=== PATIENT | female | born 1945 | race Caucasian/White ===

== ENCOUNTER → 2016-09-13 | Outpatient (CLI) | payer OTHER, MEDICARE | LOC: FIMAGING 11:16 | PROVIDERS: ATTEND Physician Assistant Surgical | DX: Z09 Encounter for follow-up examination after completed treatment for conditions other than malignant neoplasm (principal); Z98.1 Arthrodesis status ==

== ENCOUNTER → 2016-10-07 | Outpatient (CLI) | payer OTHER, MEDICARE | LOC: BMCIMAGING 08:35 | DX: Z12.31 Encounter for screening mammogram for malignant neoplasm of breast (principal) | CPT/HCPCS: G0202 ==

== ENCOUNTER → 2016-10-24 | Outpatient (CLI) | payer OTHER, MEDICARE | LOC: BMCIMAGING 14:11 | PROVIDERS: ATTEND Internal Medicine | DX: N63 Unspecified lump in breast (principal) ==

== ENCOUNTER → 2016-12-23 | Outpatient (CLI) | payer OTHER, MEDICARE | LOC: FIMAGING 10:39 | PROVIDERS: ATTEND Physician Assistant Surgical | DX: Z09 Encounter for follow-up examination after completed treatment for conditions other than malignant neoplasm (principal); Z98.1 Arthrodesis status ==

== ENCOUNTER → 2017-03-17 | Outpatient (CLI) | payer OTHER, MEDICARE | LOC: FIMAGING 10:03 | PROVIDERS: ATTEND Physician Assistant Surgical | DX: M43.12 Spondylolisthesis, cervical region (principal); Z98.1 Arthrodesis status ==

== ENCOUNTER → 2017-10-09 | Outpatient (CLI) | payer OTHER, MEDICARE | LOC: BMCIMAGING 09:32 | PROVIDERS: ATTEND Internal Medicine | DX: Z12.31 Encounter for screening mammogram for malignant neoplasm of breast (principal) ==

== ENCOUNTER → 2018-03-26 | Outpatient (CLI) | payer OTHER, MEDICARE | LOC: FIMAGING 10:33 | PROVIDERS: ATTEND Physician Assistant Surgical | DX: M43.12 Spondylolisthesis, cervical region (principal) ==

== ENCOUNTER → 2018-05-10 | Outpatient (CLI) | payer OTHER, MEDICARE ==
[~2018-05-10] MED LIST: GADOBUTROL 10 ML VIAL IVP ONE
== END ==
LOC: FIMAGING 10:47
PROVIDERS: ATTEND Physician Assistant Surgical
DX: M51.06 Intervertebral disc disorders with myelopathy, lumbar region (principal); M53.86 Other specified dorsopathies, lumbar region; M48.07 Spinal stenosis, lumbosacral region
CPT/HCPCS: 72158; A9585; 82565-PO

== ENCOUNTER 2018-08-11 11:11 | Day surgery (SDC) | payer MEDICARE, OTHER ==
[2018-08-11] MEDS ORDERED: ACETAMINOPHEN 500 MG TAB PO ONE (11:25)
[2018-08-11] MEDS ORDERED: LR 1,000 ML IV ONE (11:25)
[2018-08-11] MEDS ORDERED: ceFAZolin 2 GM/DEXTROSE 100 ML IV ONE (11:25)
[2018-08-11] MEDS ORDERED: GABAPENTIN 300 MG CAP PO ONE (11:25)
[2018-08-11] MEDS ORDERED: LIDOCAINE 1% 2 ML INJ ID PRN (11:25)
[2018-08-11] MEDS ORDERED: CHLORHEXIDINE GLUC HIBICLENS 118 ML BTL TP ONE (11:32)
[2018-08-11] MEDS ORDERED: THROMBIN (BOVINE) 5,000 UNIT VIAL TP ONE (11:32)
[2018-08-11] MEDS ORDERED: BUPIVACAINE 0.25% 30 ML SDV ONE (11:32)
[2018-08-11] MEDS ORDERED: BACITRACIN 50,000 UNITS/10 ML SYR IRR ONE (11:33)
[2018-08-11] MEDS ORDERED: EPINEPHrine 1 MG/ML INJ ONE (11:33)
[2018-08-11] MEDS ORDERED: MIDAZOLAM 2 MG/2 ML VIAL IVP ONE (12:47)
--- NOTE | 2018-08-11 12:48 | PDANEPAE ---
ANE History of Present Illness Lumbar back pain ANE Past Medical History - Cardiovascular History Hx Hypertension: Yes Hx Arrhythmias: No Hx Chest Pain: No Hx Coronary Artery / Peripheral Vascular Disease: No Hx CHF / Valvular Disease: No Hx Palpitations: No - Pulmonary History Hx COPD: No Hx Asthma/Reactive Airway Disease: No Hx Recent Upper Respiratory Infection: No Hx Oxygen in Use at Home: No Hx Sleep Apnea: No Sleep Apnea Screening Result - Last Documented: Negative Pulmonary History Comment: SINUS INFECTION 05/2018. seasonal allergies-weeds - Neurologic History Hx Cerebrovascular Accident: No Hx Seizures: No Hx Dementia: No Neurologic History Comment: SPINAL STENOSIS - Endocrine History Hx Diabetes: No Endocrine History Comment: GRAVES DX- in remission. - Renal History Hx Renal Disorders: No - Liver History Hx Hepatic Disorders: No - Neurological & Psychiatric Hx Hx Neurological and Psychiatric Disorders: No Neurological / Psychiatric History Comment: scoliosis,. peripheral neuropathy.intermittent low back pain-outer aspect of R leg.R foot numbness. - Cancer History Hx Cancer: No - Congenital Disorder History Hx Congenital Disorders: No - GI History Hx Gastrointestinal Disorders: Yes Gastrointestinal History Comment: GLUT INTOLERANT - Other Health History Other Health History: PERIPHERAL NEUROPATHY- forearms, lower extrem, feet, scoliosis R side. - Chronic Pain History Chronic Pain: Yes (RT HIP,RT SIDE OF BACK) - Surgical History Prior Surgeries: RT WRIST ORIF. TLIF 04/2016. Cervical Fusion 3-15,. LT ACL AND SCOPE. RT SHLDR SCOPE. COLONOSCOPY. BLOCKED BREAST DUCT ANE Review of Systems Review of systems is: negative Review of Systems: - Exercise capacity METS (RN): 4 METS ANE Patient History - Allergies Allergies/Adverse Reactions: gluten Allergy (Verified 10/07/14 16:04) - Home Medications Home medications: home medication list seen and reviewed Home Medications: Acetaminophen [Tylenol 325mg (*)] 650 mg PO Q6 PRN 07/31/18 [Last Taken Unknown] Amitriptyline HCl [Elavil 10 mg (*)] 20 mg PO DAILY 07/31/18 [Last Taken Unknown ] Lisinopril [Zestril 40 mg (*)] 40 mg PO DAILY 07/31/18 [Last Taken Unknown] - NPO status NPO Status: no food or drink >8 hours NPO Since - Liquids (Date): 08/11/18 NPO Since - Liquids (Time): 07:00 NPO Since - Solids (Date): 08/10/18 NPO Since - Solids (Time): 22:30 - Anes Hx Anes Hx: no prior problems - Smoking Hx Smoking Status: Former smoker - Family Anes Hx Family Anes Hx: none Family Hx Anesthesia Complications: NEG ANE Labs/Vital Signs - Vital Signs Blood Pressure: 168/84 Heart Rate: 92 Respiratory Rate: 16 O2 Sat (%): 97 Height: 167.64 cm Weight: 72.575 kg ANE Physical Exam - Airway Neck exam: FROM Mallampati Score: Class 1 Mouth exam: normal dental/mouth exam - Pulmonary Pulmonary: no respiratory distress, no rales or rhonchi - Cardiovascular Cardiovascular: regular rate and rhythym, no murmur, rub, or gallop - ASA Status ASA Status: II ANE Anesthesia Plan Anesthesia Plan: general endotracheal anesthesia
[2018-08-11] MEDS ORDERED: fentaNYL 100 MCG/2 ML INJ ONE ×2 (12:53→14:24)
[2018-08-11] MEDS ORDERED: PROPOFOL/EMULSION 500 MG/50 ML BOTTLE IV ONE (12:54)
[2018-08-11] MEDS ORDERED: PROPOFOL 200 MG/20 ML VIAL ONE (12:54)
[2018-08-11] MEDS ORDERED: REMIFENTANIL HCL 1 MG VIAL ONE (12:54)
--- NOTE | 2018-08-11 12:58 | PDHPUP ---
History & Physical Update H&P update statement: This history and physical update is based on an assessment of the patient which was completed after admission or registration (within 24 hours), but prior to the surgery/procedure. H&P update: no change in patient's condition since H&P completed
--- NOTE | 2018-08-11 13:16 | SOAPPROG ---
SOAP Progress Note Assessment/Plan: Assessment: Doing well s/p Right L5/S1 ELAN Plan: CPM in PACU Ok to DC home from PACU per orders after 3 hrs observation (see orders) 08/11/18 13:15 08/11/18 14:58 Subjective: Sleeping, wakes easily, comfortable Objective: Vital Signs Temp Pulse Resp BP Pulse Ox 36.6 C 92 16 168/84 H 97 08/11/18 11:39 08/11/18 12:47 08/11/18 12:47 08/11/18 12:47 08/11/18 12:47 Vital; HR: 95 BP: 119/68 02:99% Neuro: Follows commands CURRIE to command sens +LT throughout ICD10 Worksheet Patient Problems: Problems Problem Status Onset Cervical stenosis of spinal canal Acute Fusion of lumbar spine Acute
--- NOTE | 2018-08-11 13:17 | POSTOPPROG ---
Post Op Note Date of Operation: 08/11/18 Surgeon: Jamie Cho [employer]: Jamie Cho PAC Anesthesiologist: Jay Anesthesia: GET(General Endotracheal) Pre-op Diagnosis: Right L5/S1 HNP Post-op Diagnosis: Same Indication: Right leg pain Procedure: Right L5/S1 ELAN Findings: HNP Inf/Abcess present in the surg proc area at time of surgery?: No EBL: Minimal Complications: None Specimen(s): None
[2018-08-11] MEDS ORDERED: ONDANSETRON 4 MG/2 ML VIAL IVP PRN ×2 (14:03→14:47)
[2018-08-11] MEDS ORDERED: HYDROmorphONE/DILAUDID 2 MG/ML INJ IVP PRN (14:03)
[2018-08-11] MEDS ORDERED: NALOXONE HCL 0.4 MG/ML INJ IVP PRN (14:03)
[2018-08-11] MEDS ORDERED: fentaNYL 100 MCG/2 ML INJ IVP PRN (14:03)
[2018-08-11] MEDS ORDERED: PROMETHAZINE HCL 25 MG/ML INJ IVP PRN (14:03)
[2018-08-11] MEDS ORDERED: METHOCARBAMOL 750 MG TAB PO PRN (14:47)
[2018-08-11] MEDS ORDERED: LACTULOSE 20 GM/30 ML UDCUP PO PRN (14:47)
[2018-08-11] MEDS ORDERED: ONDANSETRON DISINTEGRATING 4 MG TAB PO PRN (14:47)
[2018-08-11] MEDS ORDERED: diphenhydrAMINE 25 MG CAP PO PRN (14:47)
[2018-08-11] MEDS ORDERED: oxyCODONE IR 5 MG TAB PO PRN (14:47)
[2018-08-11] MEDS ORDERED: BISACODYL 10 MG SUPP PR PRN (14:47)
[2018-08-11] MEDS ORDERED: MAGNESIUM HYDROXIDE 30 ML UDCUP PO PRN (14:47)
--- NOTE | 2018-08-11 14:48 | POSTANESTH ---
Post Anesthetic Evaluation Cardiovascular Status: Similar to Pre-Op Cond Respiratory Status: Similar to Pre-op Cond. Level of Consciousness/Mental Status: Alert and Oriented Pain Control: Adequate, Prn Tx Ordered Nausea/Vomiting Control: Adequate, Prn Tx Ordered Complications Possibly Related to Anesthesia: None Noted
--- NOTE | 2018-08-11 14:58 | GOP ---
DATE OF OPERATION: 08/11/2018 SURGEON: Kael Louie MD BARREL INSPECTOR: Jamie Cho PA-C. ANESTHESIA: General endotracheal. PREOPERATIVE DIAGNOSIS: 1. Right L5-S1 disk herniation causing severe right S1 radiculopathy. 2. Failed conservative care. POSTOPERATIVE DIAGNOSIS: 1. Right L5-S1 disk herniation causing severe right S1 radiculopathy. 2. Failed conservative care. PROCEDURE PERFORMED: FINDINGS: ESTIMATED BLOOD LOSS: 50 cc. INDICATIONS: The patient is a 73-year-old woman with intractable right S1 distribution radicular pain secondary to a right L5-S1 disk herniation. She has a history of a multilevel lumbar fusion extending from L3 to L5 with instrumentation. It was felt that she did not need a fusion at this level and she could get away with a minimally-invasive microdiskectomy. I explained to the patient preoperatively that it would take a little longer than normal, given the adjacent scar tissue. She had failed conservative care already. DESCRIPTION OF PROCEDURE: After informed consent was obtained, the patient was taken to the operating room and placed in the prone position on the Jaret frame. The lumbosacral area was prepped and draped in a sterile fashion. After fluoroscopic localization of the correct levels, the subcutaneous and intramuscular tissues were infiltrated with local anesthesia. A midline linear incision was created over the L5-S1 spinous processes. This was carried down to the fascial layer, which was then incised using the monopolar electrocautery and carried to the subcostal plane along the spinous processes and out to the lamina. There was an interspinous process fixation device (an axle) at L5-S1 that was blocking the view of the L5-S1 level, and would have required a more extensive facetectomy if it was left in place. Therefore, I carefully removed the screw and the device. There was an extensive amount of bone growth around the device that had to be drilled away and this was relatively time-consuming, but I was able to remove it without too much difficulty. Following this, a right-sided posterior hemilaminectomy defect was created using the [employer] drill system with a match stick fluted bur and the [place] rongeur. The ligamentum flavum was carefully elevated and the lateral recess was thoroughly decompressed. There was an extensive amount of bony overgrowth in the lateral recess that required a medial facetectomy in order to achieve adequate decompression. The S1 nerve root was very well visualized, and with careful retraction medially with the [place] 4 I did not feel a large free fragment disk herniation, but did feel a very small herniation that was removed by using the reverse angle curette to scrape inferiorly and laterally, and I was able to remove a few pieces of this disk. The [place] 4 and the nerve hooks were utilized to carefully palpate rostrally, caudally, medially and laterally, and there was no further disk. Intraoperative fluoroscopy was again utilized to verify the correct level. We were at the correct level. Following this, meticulous hemostasis was achieved. The wound was copiously irrigated with antibiotic irrigation. The subcutaneous and intramuscular tissues were re- infiltrated with local anesthesia, and the wound was closed in a layered fashion using interrupted Vicryl sutures followed by Steri-Strips on the skin. PROCEDURE: 1. Removal of posterior nonsegmental (interspinous process fixation device) with right-sided posterior hemilaminectomy, medial facetectomy, foraminotomy, and diskectomy. 2. Use of intraoperative microscopy and fluoroscopy. COMPLICATIONS: None. DISPOSITION: The patient is currently in the process of being repositioned for extubation. /[id number]/MODL MTDD
[2018-08-11] MEDS ORDERED: ONDANSETRON 4 MG/2 ML VIAL ONE (15:49)
[2018-08-11] MEDS ORDERED: POLYETHYLENE GLYCOL 3350 17 GM PKT PO SCH (16:00)
[2018-08-11 19:48] VITALS: BP 134/77
[2018-08-11] MEDS ORDERED: SENNOSIDES/DOCUSATE SODIUM TAB PO SCH (21:00)
[2018-08-11] MEDS ORDERED: FAMOTIDINE 20 MG TAB PO SCH (21:00)
[2018-08-11] MEDS ORDERED: ACETAMINOPHEN 500 MG TAB PO SCH (22:00)
[2018-08-11] MEDS ORDERED: CEFUROXIME 1,500 MG in NS 50 ML IV SCH (23:00)
[2018-08-12] MEDS ORDERED: CEFUROXIME 1,500 MG in NS 50 ML IV SCH (07:13)
[2018-08-12] MEDS ORDERED: AMITRIPTYLINE HCL 10 MG TAB PO SCH (09:00)
[2018-08-12] MEDS ORDERED: ENOXAPARIN 40 MG/0.4 ML SYR SC SCH (09:00)
[2018-08-12] MEDS ORDERED: LISINOPRIL 40 MG TAB PO SCH (09:00)
== END 2018-08-11 19:39 | disposition home or self-care (01) ==
LOC: F3N 11:11 → UNDOADMOB 11:11 → FSGY 11:11 → UNDODISOB 19:39 → FSGY 19:39
PROVIDERS: ATTEND Neurological Surgery
PROC: 0SB40ZZ Excision of Lumbosacral Disc, Open Approach (ICD-10-PCS; principal; 2018-08-11 13:00)
PROC: 00NY0ZZ Release Lumbar Spinal Cord, Open Approach (ICD-10-PCS; principal; 2018-08-11 13:00)
DX: M51.27 Other intervertebral disc displacement, lumbosacral region (principal)
CPT/HCPCS: J0171; J0690; J2250; J2405; J2704; J3010

== ENCOUNTER → 2018-10-28 | Outpatient (CLI) | payer OTHER | LOC: FIMAGING 08:00 | PROVIDERS: ATTEND Internal Medicine | DX: Z12.31 Encounter for screening mammogram for malignant neoplasm of breast (principal); Z12.39 Encounter for other screening for malignant neoplasm of breast ==

== ENCOUNTER → 2018-12-03 | Outpatient (CLI) | payer OTHER | LOC: FIMAGING 08:25 | PROVIDERS: ATTEND Physician Assistant Surgical | DX: M51.26 Other intervertebral disc displacement, lumbar region (principal); Z98.1 Arthrodesis status | CPT/HCPCS: 72158; A9585; 82565-PO ==